=== PATIENT | female | born 1990 | race African-American/Black ===

== ENCOUNTER 2017-11-29 18:17 | Emergency (ER) | payer SELFPAY ==
[2017-11-29 18:55] LABS: #Basophils 0.1 thou/uL (0.0-0.2); #Eosinphils 0.1 thou/uL (0.0-0.7); #Lymphocytes 3.4 thou/uL (1.20-3.40); #Monocytes 0.6 thou/uL (0.11-0.59); #Neutrophils 8.1 thou/uL (1.40-6.50); %Basophils 0.9 % (0.0-1.0); %Eosinophils 1.1 % (0.0-10.0); %Lymphocytes 27.4 % (21.0-51.0); %Monocytes 5.1 % (0.0-10.0); %Neutrophils 65.5 % (42.0-75.0); Hemoglobin 14.1 g/dL (12.0-16.0); Mean Corpuscular HGB CONC 33.7 g/dL (32.0-36.0); Mean Corpuscular Hemoglobin 25.5 pg (27.0-31.0); Mean Corpuscular Volume 75.8 fl (81.0-99.0); Mean Platelet Volume 8.1 fL (7.4-10.4); Platelet Count 356 thou/uL (130-400); RBC Distribution Width 13.5 % (11.5-14.5); Red Blood Cell (RBC) Count 5.51 mill/uL (4.20-5.40); White Blood Cell (WBC) Count 12.3 thou/uL (4.8-10.8)
[2017-11-29 19:16] LABS: ALT (SGPT) 266 U/L (8-55); AST (SGOT) 138 U/L (5-34); Albumin 4.1 g/dL (3.5-5.0); Alkaline Phosphatase 129 U/L (40-150); Anion Gap 14 mmol/L (10-20); BUN (Urea Nitrogen) 7 mg/dL (7.0-18.7); Bilirubin, Total 0.8 mg/dL (0.2-1.2); Calc. Creatinine Clearance 0 mL/min (70-130); Calcium 9.5 mg/dL (7.8-10.44); Carbon Dioxide 27 mmol/L (22-29); Chloride 99 mmol/L (98-107); Estimated GFR-MDRD 90; Globulin 4.3 g/dL (2.4-3.5); Glucose 81 mg/dL (70-105); Potassium 3.5 mmol/L (3.5-5.1); Protein, Total 8.4 g/dL (6.0-8.3); Sodium 136 mmol/L (136-145)
[2017-11-29 20:15] LABS: Bilirubin Negative (Negative); Blood, Urine Negative (Negative); Clarity CLEAR (Clear); Glucose, Urine (Dipstick) Negative (Negative); Leukocyte Small (Negative); Nitrite Negative (Negative); Protein, Urine (Dipstick) Trace mg/dL (Neg-Trace); Specific Gravity, Urine 1.022 (1.002-1.036)
[2017-11-29 20:16] LABS: Pregnancy Test - Urine (BHCG) POSITIVE (Negative); Pregu Control Background? CLEAR/WHITE (CLR/WHITE); Pregu Control Bar Appear? YES (CONTROL BAR); Specific Gravity 1.022 (1.002-1.036)
[2017-11-29 20:17] LABS: Bacteria/HPF Rare-Few HPF (None Seen); Hyaline Casts/LPF 0-3 HYALINE CAST LPF (0-3 Hyaline); Squamous Epithelial 0-3 HPF (0-3)
[2017-11-29] MEDS ORDERED: Doxylamine 25 MG TAB PO SCH (20:30)
[2017-11-29] MEDS ORDERED: pyridOXINE 50 MG (B6) TAB PO SCH (21:45)
--- NOTE | 2017-11-29 22:36 | ULT ---
PELVIC ULTRASOUND 11/29/17 HISTORY: Nausea, vomiting and cramping in a female. Confirm intrauterine . TECHNIQUE: Multiplanar mcclain scale and color doppler images were obtained in a transabdominal pelvic ultrasound. Spectral analysis of the doppler waveforms of the ovaries were performed. FINDINGS: There is a gestational sac within the uterus. This contains a pole and yolk sac. The crown-rump length measures 0.88 cm which estimates gestational age of 6 weeks, 6 days. A heart rate was d etected at 132 beats per minute. No free fluid is seen in the pelvis. Both ovaries are normal in size and appearance and demonstrates normal internal flow. IMPRESSION: Single live intrauterine with estimated age of 6 weeks, 6 days. POS: CLAUDIA
[2017-12-02 03:15] LABS: Chlamydia by PCR Not Detected (NotDetected); GC by PCR Not Detected (NotDetected)
== END 2017-11-29 23:30 | disposition home or self-care (01) ==
LOC: ERS 18:17
DX: O23.591 Infection of other part of genital tract in pregnancy, first trimester (principal); O21.9 Vomiting of pregnancy, unspecified; Z3A.01 Less than 8 weeks gestation of pregnancy
CPT/HCPCS: 36415; 76856; 80053; 81003; 81015; 81025; 84702; 85025; 87480; 87491; 87510; 87591; 87660; 96360; 96361

== ENCOUNTER 2018-05-14 19:01 | Inpatient (IN) | payer OTHER ==
[2018-05-14 19:34] VITALS: BMI 36.4
[2018-05-14] MEDS ORDERED: Ondansetron HCl/PF 4 MG/2 ML Vial IVP PRN (20:33)
[2018-05-14] MEDS ORDERED: Lactated Ringer's 1,000 ML IV SCH (20:45)
[2018-05-14] MEDS ORDERED: Lidocaine 2% Viscous Solution 20 ML, Aluminum & Magnesium Hydroxide 30 ML, Donnatal Eli... SSW SCH (20:45)
[2018-05-14] MEDS ORDERED: MULTIVITAMINS IV SCH (20:45)
[2018-05-14] MEDS ORDERED: Fleet Enema 133 ML BOT PR SCH (20:45)
[2018-05-14] MEDS ORDERED: THIAMINE HCL IV SCH (20:45)
[2018-05-14] MEDS ORDERED: Multivit, Adult Inj 10 ML VIAL IV SCH (20:45)
[2018-05-14] MEDS ORDERED: LACTATED RINGER S IV SCH (20:45)
[2018-05-14] MEDS ORDERED: Magnesium Citrate 300 ML BOT PO SCH (20:45)
[2018-05-14 20:55] LABS: #Basophils 0.1 thou/uL (0.0-0.2); #Eosinphils 0.2 thou/uL (0.0-0.7); #Lymphocytes 2.8 thou/uL (1.20-3.40); #Monocytes 0.7 thou/uL (0.11-0.59); #Neutrophils 10.2 thou/uL (1.40-6.50); %Basophils 0.6 % (0.0-1.0); %Eosinophils 1.2 % (0.0-10.0); %Lymphocytes 20.2 % (21.0-51.0); %Monocytes 4.7 % (0.0-10.0); %Neutrophils 73.2 % (42.0-75.0); Hemoglobin 11.6 g/dL (12.0-16.0); Mean Corpuscular HGB CONC 33.9 g/dL (32.0-36.0); Mean Corpuscular Hemoglobin 24.4 pg (27.0-31.0); Mean Corpuscular Volume 71.8 fL (78.0-98.0); Mean Platelet Volume 9.2 fL (7.4-10.4); Platelet Count 278 thou/uL (130-400); RBC Distribution Width 14.4 % (11.5-14.5); Red Blood Cell (RBC) Count 4.78 mill/uL (4.20-5.40); White Blood Cell (WBC) Count 13.9 thou/uL (4.8-10.8)
[2018-05-14 21:26] LABS: ALT (SGPT) 28 U/L (8-55); AST (SGOT) 32 U/L (5-34); Albumin 3.6 g/dL (3.5-5.0); Alkaline Phosphatase 120 U/L (40-150); Anion Gap 15 mmol/L (10-20); BUN (Urea Nitrogen) 4 mg/dL (7.0-18.7); Bilirubin, Total 0.5 mg/dL (0.2-1.2); Calc. Creatinine Clearance 198 mL/min (70-130); Calcium 8.5 mg/dL (7.8-10.44); Carbon Dioxide 19 mmol/L (22-29); Chloride 105 mmol/L (98-107); Estimated GFR-MDRD Greater than 90; Globulin 3.6 g/dL (2.4-3.5); Glucose 65 mg/dL (70-105); Lipase 22 U/L (8-78); Potassium 4.3 mmol/L (3.5-5.1); Protein, Total 7.2 g/dL (6.0-8.3); Sodium 135 mmol/L (136-145)
[2018-05-14] MEDS: Metoclopramide HCl 10 MG/2 ML VIAL IVP SCH ×2 (23:19→23:20)
[2018-05-15] MEDS: Lactated Ringer's 1,000 ML IV SCH ×3 (00:19→14:18)
[2018-05-15] MEDS: Ondansetron HCl/PF 4 MG/2 ML Vial IVP SCH ×3 (00:23→20:55)
[2018-05-15] MEDS ORDERED: diphenhydrAMINE 50 MG/ML VIAL IVP SCH (02:00)
[2018-05-15] MEDS ORDERED: Ondansetron HCl/PF 4 MG/2 ML Vial ONE (05:54)
--- NOTE | 2018-05-15 09:12 | HP ---
DATE OF ADMISSION: 05/14/2018 PRIMARY OB: Tapan Rader D.O. HISTORY OF PRESENT ILLNESS: The patient is a 27-year-old G3, P2 female with an intrauterine pregnanc y at 30 weeks gestation who presents to Labor and Delivery with a 2 week history of abdominal pain wi th persistent nausea and vomiting since 4 weeks gestation. She reports that she has been on multiple medications at home including Zofran and Diclegis, Bonjesta and metoclopramide in an attempt to cont rol her nausea and vomiting. She reports a 5-6 pound weight loss since the beginning of her pregnanc y. What prompted her to come to the emergency room today is her abdominal pain that she has been exp eriencing. The patient reports that the pain is in the left upper quadrant, seems to feel worse when she is full after eating. The patient also reports that she has had a long history of heartburn, be lching and constipation where reporting her stools as being very small volume and pebble like. The p atient denies any GI problems outside of . She denies fever, insomnia, dysphagia, jaundice, liver or gallbladder disease, head trauma or lightheadedness. PAST MEDICAL HISTORY: Sickle cell trait and blues with 2 prior pregnancies. PAST SURGICAL HISTORY: Eye surgery for correction of strabismus as a child. MEDICATIONS: Metoclopramide for nausea and vomiting, ____, vitamins. ALLERGIES: No known drug allergies. SOCIAL HISTORY: Denies drug, alcohol or tobacco use. 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 OB LABS: Unavailable at time of dictation. REVIEW OF SYSTEMS: The patient denies fever, fall, headache, chest pain. She does have some shortne ss of breath with exertion, reports the nausea and vomiting per HPI. Denies any new rashes. Denies any vaginal bleeding or leakage of fluid, any urinary urgency or frequency. She denies syncope. PHYSICAL EXAMINATION: VITAL SIGNS: Blood pressure 109/65, heart rate of 85, respiratory rate 24, temperature 98.0. GENERAL: The patient is alert, oriented, and cooperative and pleasant to interact with. She appears uncomfortable and spits into the vomit bag during part of the exam. HEART: Regular rate and rhythm, no gallops, rubs or murmurs. LUNGS: Clear to auscultation bilaterally. She has good peripheral pulses. ABDOMEN: Soft. She does have some tenderness to palpation in the left upper quadrant. No tendernes s to palpation in the right upper quadrant, right lower quadrant, left lower quadrant suprapubic. heart tones, baseline is noted to be in the 130s with moderate long-term variability, positive accelerations, no decelerations, and no contractions on the tocometer. LABORATORY DATA: White count is 13.9, hemoglobin 11.6, hematocrit 34.3, platelets of 278,000. Sodiu m is 135, potassium 4.3, chloride 105, bicarbonate 19, BUN 4, creatinine 0.59, glucose 65, calcium 8. 5, AST of 32, ALT of 28, bilirubin of 0.5. Amylase is 60, lipase of 20. H. pylori test has been ord ered, collected and is pending. ASSESSMENT AND PLAN: The patient is a 27-year-old female female with an intrauterine at 30 weeks with longstanding nausea and vomiting with new onset abdominal pain in the last couple w eeks that is worse with food, accompanied by significant constipation. During this hospitalization w e have given her Fleet's enema with some success; however, she has not had much stool. She has had 2 separate bowel movements with stool removed and she has received a bag of IV fluids with thiamine an d multivitamins given the longstanding history of nausea, vomiting, and weight loss and another liter of LR with maintenance fluids. Of note, the patient did have a need to urinate after 1 liter of flu id suggesting a decent hydration status. The patient has been placed on Zofran and Reglan scheduled with Benadryl and in spite of that, the patient has vomited 3 times through the night. We will order a right upper quadrant ultrasound as this was a plan in place with her primary OB. The patient's ph ysician, Dr. Rader, has been notified of the patient's presence and has asked that we continue to man age her. Fetus has a category 1 tracing. We will continue once daily NSTs, we will the right upper quadrant u ltrasound to current regimen and make her n.p.o. for now.
--- NOTE | 2018-05-15 10:05 | ULT ---
COMPLETE ABDOMEN ULTRASOUND: INDICATION: Epigastric abdominal pain as well as right upper quadrant and left upper quadrant abdominal pain. FINDINGS: There are numerous shadowing gallstones within the gallbladder. No gallbladder wall thickening or pe richolecystic fluid is identified. No sonographic Braswell's sign is reported. The common bile duct m easures 3 mm. Appropriate hepatopetal flow is seen within the portal vein. Visualized liver, aorta, IVC, and spleen were within normal limits. The visualized aspects of the pa ncreas are within normal limits. The right kidney measures 11.2 cm in length and the left measured 10.8 cm in length. Incidental note is made of a live intrauterine gestation with heart rate documented at 152 b.p. m. IMPRESSION: 1. Cholelithiasis without evidence of acute cholecystitis. 2. Live intrauterine gestation. POS: PEGGY
--- NOTE | 2018-05-15 11:29 | PDOC.EVN ---
Event Note - Event Note Event Note: HD 1 S: main concern is pain, nausea is same as nausea but pain is new, progressing all week O: VSS Uncomfortable appearing but A and O nonlabored breathing Abd +tenderness mid epigastric gravid uterus FHT reactive A/P: Discussed pain may be GI related (nichole, gastritis, constipation) vs discomfort, leaning to GI cause. Abd US orderd, labs WNL this AM. Being managed by [facility] service.
--- NOTE | 2018-05-15 13:09 | PDOC.EVN ---
Event Note - Event Note Event Note: Preop: I assumed care of L&D at 1200 noon: @1250: I discussed with Dr Arrieta in L&D open cystectomy . They will plan open GB removal due to EGA and diffficuluty with laparoscopy. We will monitor her in L&D for 24 hours postop. Surgical care by Surgery team.
--- NOTE | 2018-05-15 13:15 | CON ---
DATE OF CONSULTATION: 05/15/2018 REQUESTING PHYSICIAN: Dr. Inga Sahu. HISTORY OF PRESENT ILLNESS: This is a 27-year-old G3, P2 woman who is 30 weeks of gestation. The pa nathan was admitted for observation with complaint of persistent epigastric to right upper quadrant ab dominal pain of 3 weeks' duration. This is associated with multiple episodes of emesis exacerbated b y eating. The patient states that she has had persistent emesis throughout her , which is u nusual and had two previous pregnancies. She only had emesis gravidarum up to 10 weeks and nothing b eyond. The patient denies any fevers or chills. She has lost a fair amount of weight due to exacerb ating symptoms by eating. PAST MEDICAL HISTORY: Pertinent for sickle cell trait. She had normal vaginal deliveries and had tw o previous pregnancies. PAST SURGICAL HISTORY: Surgery for strabismus as a child. PREHOSPITAL MEDICATIONS: Includes vitamins. ALLERGIES: Patient has no known drug allergies. SOCIAL HISTORY: She denies any cigarette smoking, ethanol, or illicit drug abuse. REVIEW OF SYSTEMS: A 10-point review of systems essentially unremarkable except for as stated in pas t medical history and chief complaint. PHYSICAL EXAMINATION: GENERAL: This reveals a 27-year-old normally developed woman, who is otherwise coherent and interact sarwat in appears stated age. The patient is alert and oriented x3. She appears to be in no acute dist ress at the time of my evaluation. VITAL SIGNS: Currently includes blood pressure 121/62, pulse is 75, respiratory rate is 20, temperat ure is 98.3 degrees Fahrenheit. HEENT: Reveals normocephalic and atraumatic. Pupils are equal, round, reactive to light and accommo dation. Extraocular muscles are intact bilaterally. She has no sclerae icterus present. Oral mucos a is pink and moist. No lesions are noted. NECK: Supple. No palpable lymphadenopathy or thyromegaly present. CARDIOVASCULAR: Reveals regular rate and rhythm, no murmurs or gallops auscultated. LUNGS: Clear to auscultation bilaterally. Her breathing regular and unlabored. ABDOMEN: Soft and gravid with 30 weeks intrauterine . PELVIS: The uterus is palpated almost to the epigastrium. Liver and spleen are otherwise nonpalpabl e below costal margin. She has moderate tenderness to palpation of the right upper quadrant. EXTREMITIES: Reveals 2+ radial and pedal pulses bilaterally. No ankle edema is present. NEUROLOGIC: Reveals no focal deficits present. PERTINENT LABORATORY FINDINGS: Includes CBC from yesterday with 13,900 white blood cells, hemoglobin and hematocrit 11.6 and 34.3 respectively. Platelet count is 278,000. Metabolic profile: Sodium 1 35, potassium is 4.3, chloride is 105, bicarbonate is 19, BUN is 4, creatinine 0.59, glucose is 65, t otal bilirubin 0.5. AST and ALT are 32 and 28 respectively. Alkaline phosphatase is normal at 120. Serum lipase is also normal at 22. I have personally reviewed the abdominal ultrasound, which was obtained today and this reveals multip le intraluminal gallstones. There is no gallbladder wall thickening or pericholecystic fluid present . Common bile duct is normal in diameter at 2.9 mm. IMPRESSION: 1. Cholelithiasis with biliary colic and probable chronic cholecystitis. 2. A 30-week gestation of intrauterine . RECOMMENDATION: I have discussed with the patient extensively about conservative management and imme diate laparoscopic cholecystectomy. However, the patient insists that she has been unable to maintain food and has lost weight over the last 3-4 weeks and is unwilling to wait. The alternat sarwat is to proceed with open cholecystectomy. At this time with inherent risks of premature contracti on. I have also advised the patient of additional risk for bleeding, infection, injury to bile duct or surrounding structures. This information was given to the patient in the presence of her nurse at bedside. The patient indicates understanding of information given. She has elected to proceed with open cholecystectomy at this time. Thank you again, Dr. Sahu for allowing me the opportunity to participate in the care of this patie nt.
--- NOTE | 2018-05-15 13:42 | PRG ---
PREOPERATIVE INFORMED CONSENT DICTATION PREOP DATE OF SERVICE: 05/15/2018 TIME OF DICTATION: 1324 TIME OF INTERVENTION: 1310 to 1324. In brief, this is a patient that I have inherited since I took on Labor and Delivery call at 12:00 noon today. This patient is a patient of Dr. Tapan Rader who has been diagnosed with cholelithiasis at 30 weeks who is scheduled for open cholecystectomy by Dr. Amrik Arrieta. Dr. Arrieta has already seen the patient and has scheduled time in the OR for this procedure. I was called to antepartum room 1 to answer questions based on the surgical risks and benefits of this procedure at 30 weeks. I performed a detailed informed consent with the patient including the risks including labor, bleeding and infection. Benefits include decrease in future pain and decrease in the need for future potential emergency surgical intervention. I also discussed the option of laparoscopy, but based on the patient's EGA of 30 weeks laparoscopy is contraindicated due to the uterus gravid state. We also discussed the potential risk of , which is low with this kind of surgery, but this is why we will monitor the patient for 24 hours postop in Labor and Delivery. We discussed ERCP as an option, but it is not a valid choice at this time based on the patient's multiple stones and gestational age. Details were given and she voiced understanding. No acute concerns were noted. She will sign the informed consent by Dr. Arrieta and we will monitor her in Labor and Delivery postop for any evidence of labor. It is important to note that the patient had a family member in the room and also had the patient's family member on the phone who participated in our informed consent discussion. SONIDO
[2018-05-15] MEDS ORDERED: PHENYLEPHRINE-NS 100 MCG/ML 10 ML SYRINGE ONE (15:00)
[2018-05-15] MEDS ORDERED: Lidocaine 1% PF 5 ML VIAL ONE (15:00)
[2018-05-15] MEDS ORDERED: Succinylcholine Chloride 20 MG/ML 10 ml SYRINGE FS ONE (15:00)
[2018-05-15] MEDS ORDERED: PROPOFOL 200 MG/20 ML VIAL ONE (15:00)
[2018-05-15] MEDS ORDERED: ePHEDrine/0.9% NaCl/PF SYRINGE 50 mg/10 ml ONE (15:00)
[2018-05-15] MEDS ORDERED: Glycopyrrolate 0.2 MG/ML 5 ML SYRINGE ONE (15:00)
[2018-05-15] MEDS ORDERED: Esmolol 100 MG/10 ML VIAL ONE (15:00)
[2018-05-15] MEDS ORDERED: Dexamethasone 20 MG/5 ML VIAL ONE (15:00)
[2018-05-15] MEDS ORDERED: Iothalamate Meglumine 60% 50 ML VIAL FS ONE (15:55)
[2018-05-15] MEDS ORDERED: Fentanyl 100 MCG/2 ML VIAL ONE ×2 (16:11)
[2018-05-15] MEDS ORDERED: Meperidine HCl/PF 25 MG/ML VIAL SLOW IVP PRN (16:52)
[2018-05-15] MEDS ORDERED: Ondansetron HCl/PF 4 MG/2 ML Vial IVP PRN (16:52)
[2018-05-15] MEDS ORDERED: Promethazine HCl 25 MG/ML VIAL IM PRN (16:52)
[2018-05-15] MEDS ORDERED: Promethazine HCl 25 MG/ML VIAL SLOW IVP PRN (16:52)
[2018-05-15] MEDS ORDERED: Bupivacaine/Epinephrine 0.25% 30 ML VIAL ONE (17:56)
[2018-05-15] MEDS ORDERED: traMADol HCl 50 MG TAB PO PRN ×2 (18:35)
--- NOTE | 2018-05-15 18:35 | PDOC.EVN ---
Event Note - Event Note Event Note: L&D Note: Patient now out of Main OR.... No complications noted. Awaiting arrival to L&D after initial postop recovery.
[2018-05-15] MEDS: Butorphanol Tartrate 1 MG/ML VIAL SLOW IVP PRN ×2 (19:26→22:39)
--- NOTE | 2018-05-15 19:26 | PDOC.EVN ---
Event Note - Event Note Event Note: Back in L&D for monitoring
[2018-05-15] MEDS: diphenhydrAMINE 50 MG/ML VIAL IVP SCH (20:50)
[2018-05-15] MEDS: Metoclopramide HCl 10 MG/2 ML VIAL IVP SCH (20:55)
[2018-05-15] MEDS: Acetaminophen 500 MG TAB PO SCH (22:07)
--- NOTE | 2018-05-15 22:52 | OP ---
DATE OF PROCEDURE: 05/15/2018 PREOPERATIVE DIAGNOSES: 1. Acute cholecystitis with cholelithiasis. 2. A 30 weeks intrauterine . POSTOPERATIVE DIAGNOSES: 1. Acute cholecystitis with cholelithiasis. 2. A 30 weeks intrauterine . OPERATIONS PERFORMED: Open cholecystectomy. SURGEON: Amrik Arrieta D.O. ANESTHESIA: General endotracheal. ESTIMATED BLOOD LOSS: 20 mL. FLUIDS GIVEN: 1200 mL crystalloids. URINARY OUTPUT: 250 mL. SPONGE AND INSTRUMENT COUNT: Certified as correct x2. COMPLICATIONS: None apparent at the time of operation. INDICATIONS FOR PROCEDURE: A 27-year-old woman G3, P2 with 30 weeks intrauterine , presente d with recurrent epigastric to right upper quadrant abdominal pain which has become more persistent o andrew the last 3 weeks. The patient is anorexic for fear of exacerbating her pain. She has lost a olya r amount of weight. After discussion and provision of options including laparoscopic chol ecystectomy, the patient vehemently refused to wait any longer and elected, however, to proceed with open cholecystectomy with all inherent risks advised. DESCRIPTION OF PROCEDURE: Informed consent obtained from the patient who was brought to the operatin g room and placed in a supine position. Once general anesthesia was initiated, patient is placed in the left lateral recumbent position. The abdomen was then sterilely prepped and draped in usual fash ion after Gutierrez catheter was inserted and placed bedside drain. Right subcostal incision is made usi ng #10 scalpel. Incision was carried through subcutaneous tissues maintaining hemostasis using therm ocautery. Fascia was then incised along the line of the incision. The muscle was sterilely divided with good hemostasis exposing the peritoneum beneath which was grasped x2 with hemostats. The perito pamela cavity was then sharply entered using Metzenbaum scissors. Bookwalter retractor was put in plac e to gain exposure. The fundus of the gallbladder was identified, grasped with a ring forceps and el evated. Omental adhesions were then taken down from remainder of the gallbladder. A second ring for ceps was then applied at the Maxi's pouch which was retracted laterally. The gallbladder was westley en down off the liver in a retrograde fashion using cautery. Once the gallbladder was freed from the liver mcc, the cystic duct was then carefully dissected free from surrounding structures and div ided between clips. Two clips were applied proximally and one clip at the junction of the cystic jodi t and gallbladder. The cystic artery was also divided between clips in a similar fashion. The remai nder of the gallbladder was then taken off the liver bed with good hemostasis. Minor oozing from the liver bed was readily controlled using a 1 x 2 inch piece of . Operative site was inspected fo r good hemostasis. All clips remain in place, no bile stains present. Finding no other pathology, o peration was terminated. Peritoneum was approximated along the line of the incision using a running stitch of 2-0 Vicryl. Fascia was then approximated in layers using interrupted sutures of 0 Vicryl. Subcutaneous tissues were approximated using interrupted sutures of 2-0 Vicryl. Skin incision was c losed using a running stitch of 4-0 Monocryl suture in subcuticular fashion. Dermabond was then appl ied over the incision. The patient tolerated the operation without any apparent complications and wa s returned to the recovery room in satisfactory condition.
[2018-05-16] MEDS: Butorphanol Tartrate 1 MG/ML VIAL SLOW IVP PRN ×3 (01:13→07:32)
[2018-05-16] MEDS: Lactated Ringer's 1,000 ML IV SCH ×4 (01:14→19:00)
[2018-05-16] MEDS ORDERED: Promethazine HCl 25 MG in Sodium Chloride 0.9% 50 ML IVPB PRN (01:22)
[2018-05-16] MEDS: Promethazine HCl 25 MG/ML VIAL IM/IV PRN ×2 (01:40→07:34)
[2018-05-16] MEDS: Acetaminophen 500 MG TAB PO SCH ×2 (04:17→11:49)
[2018-05-16] MEDS: diphenhydrAMINE 50 MG/ML VIAL IVP SCH ×2 (04:29→11:15)
--- NOTE | 2018-05-16 05:59 | PDOC.EVN ---
Event Note - Event Note Event Note: Postop Day 0 to 1 s/p open nichole EGA 30 weeks 6 days S. Resting, states doing ok...still with some pain at site O. Adebrile, BPs ok. Incision at RUQ sutured and DB closed Uterus NT Soft abd Monitors: Cat 1/reactive...slight irritability on monitor (toco) A/P: s/p open nichole for cholelithiasis...doing well. Plan: although some irritability, there are not felt...ok to remove monitors at 0700....watch today, maybe home tomorrow. Advance diet as shameka
[2018-05-16 06:17] LABS: ALT (SGPT) 42 U/L (8-55); AST (SGOT) 44 U/L (5-34); Albumin 3.2 g/dL (3.5-5.0); Alkaline Phosphatase 107 U/L (40-150); Bilirubin, Direct 1.1 mg/dL (0.1-0.3); Bilirubin, Total 1.8 mg/dL (0.2-1.2); Protein, Total 6.4 g/dL (6.0-8.3)
[2018-05-16] MEDS ORDERED: Morphine 4 MG/ML VIAL SLOW IVP PRN (11:24)
[2018-05-16] MEDS ORDERED: Ondansetron HCl/PF 4 MG/2 ML Vial IVP PRN (11:25)
[2018-05-16] MEDS ORDERED: Sodium Chloride 0.9% 10 ML ONE (11:37)
[2018-05-16] MEDS: traMADol HCl 50 MG TAB PO PRN (12:19)
[2018-05-16] MEDS: Acetaminophen 1,000 MG in Premix Bag 1 BAG IVPB SCH ×2 (15:35→22:35)
[2018-05-16] MEDS: Ondansetron HCl/PF 4 MG/2 ML Vial IVP PRN (15:36)
[2018-05-16] MEDS: Simethicone Chewable 80 MG TAB PO PRN (17:17)
[2018-05-16] MEDS: Famotidine 20 MG TAB PO SCH (22:35)
[2018-05-17] MEDS: Lactated Ringer's 1,000 ML IV SCH ×3 (03:30→21:54)
[2018-05-17] MEDS: Acetaminophen 1,000 MG in Premix Bag 1 BAG IVPB SCH ×2 (03:30→09:41)
[2018-05-17 06:14] LABS: ALT (SGPT) 95 U/L (8-55); AST (SGOT) 77 U/L (5-34); Albumin 3.1 g/dL (3.5-5.0); Alkaline Phosphatase 112 U/L (40-150); Bilirubin, Direct 1.2 mg/dL (0.1-0.3); Protein, Total 6.3 g/dL (6.0-8.3)
--- NOTE | 2018-05-17 06:31 | PRG ---
DATE OF SERVICE: 05/17/2018 SUBJECTIVE: The patient is postop day #1 from open cholecystectomy. The patient noted to be 30 week s and is currently in the antepartum byrnes. She had no issues overnight. She did have a lit tle bit of pain which is expected after her procedure and her . The patient is tolerating a diet. PHYSICAL EXAMINATION: VITAL SIGNS: Temperature is 98.5, heart rate 95, blood pressure 119/86, respirations 18, oxygen satu ration 96% on room air. GENERAL: The patient is resting comfortably in bed. She is awake, alert, and oriented x3. LUNGS: Clear to auscultation bilaterally. ABDOMEN: Obviously gravid. Her surgical site is clean, dry, and intact. The dressing is clean, dry , and intact. Her abdomen is tender without signs of peritoneal signs. EXTREMITIES: Neurovascularly intact x4. LABORATORY DATA: This morning, total bilirubin 1.8, which is up from 0.5; direct bilirubin 1.1; AST 44; ALT 42; alkaline phosphatase 107. ASSESSMENT AND PLAN: 1. Status post open cholecystectomy. 2. A 30-week gestation intrauterine . Plan will be to repeat her LFTs in the morning. Continue supportive care per the primary team, discu ssed with the patient to avoid the strong narcotics and use the tramadol sparingly. The evaluation w as done with Dr. Arrieta this morning during rounds.
--- NOTE | 2018-05-17 08:18 | PDOC.EVN ---
Event Note - Event Note Event Note: real estate underwriter sign on note: Noted to be back on clears. Otherwise stable. Awaiting possible dsch tomorrow if stable if tolerating clears. Dr Arrieta saw patient last pm
--- NOTE | 2018-05-17 08:41 | PRG ---
DATE OF SERVICE: 05/17/2018 SUBJECTIVE: The patient is a 27-year-old female with an intrauterine at approximately 30 w eeks' gestation, who is now postop day 2, status post an open cholecystectomy for persistent nausea, vomiting, and abdominal pain. The patient, yesterday, had some difficulty with pain control, nausea, vomiting, and was switched over to IV Tylenol, which is the only thing she has required since then. The patient today reports she has much better pain control. Her nausea is much improved. She was p laced back on liquid diet yesterday evening by her primary surgeon, Dr. Arrieta. She is ambulating wit hout difficulty and fetus has been having reactive NSTs. OBJECTIVE: VITAL SIGNS: This morning, blood pressure is 119/72, temperature 97.7, pulse of 86, respiratory rate of 18. GENERAL: She appears to be in no acute distress. She is alert and oriented, cooperative and pleasan t to interact with. HEENT: Head is normocephalic, atraumatic. ABDOMEN: Gravid and soft. Her incision is clean, dry, and intact. ASSESSMENT AND PLAN: The patient is a 27-year-old female with an intrauterine approximatel y 30 weeks' gestation, who is now postoperative day #2, status post open cholecystectomy. The patien t is doing much better today than yesterday from a pain standpoint and nausea and vomiting standpoint . Possible discharge today pending the primary surgeon's decision.
[2018-05-17] MEDS: Famotidine 20 MG TAB PO SCH ×2 (09:40→21:54)
[2018-05-17] MEDS: Simethicone Chewable 80 MG TAB PO PRN ×2 (09:47→19:58)
[2018-05-17] MEDS ORDERED: Bisacodyl 10 MG SUPP PR PRN (09:58)
[2018-05-17] MEDS: Acetaminophen 500 MG TAB PO SCH ×2 (15:53→21:54)
[2018-05-17] MEDS: Ondansetron HCl/PF 4 MG/2 ML Vial IVP PRN ×2 (15:53→22:01)
[2018-05-17] MEDS: traMADol HCl 50 MG TAB PO PRN (19:58)
--- NOTE | 2018-05-17 20:25 | PDOC.EVN ---
Event Note - Event Note Event Note: RN phone call: Diet follow up: still on clears, will advance to regular diet.
[2018-05-18] MEDS: Ondansetron HCl/PF 4 MG/2 ML Vial IVP PRN (03:47)
[2018-05-18 05:41] LABS: #Basophils 0.1 thou/uL (0.0-0.2); #Eosinphils 0.1 thou/uL (0.0-0.7); #Lymphocytes 2.3 thou/uL (1.20-3.40); #Monocytes 0.6 thou/uL (0.11-0.59); #Neutrophils 8.9 thou/uL (1.40-6.50); %Basophils 1.1 % (0.0-1.0); %Eosinophils 0.8 % (0.0-10.0); %Lymphocytes 19.1 % (21.0-51.0); %Monocytes 5.2 % (0.0-10.0); %Neutrophils 73.9 % (42.0-75.0); Hemoglobin 10.8 g/dL (12.0-16.0); Mean Corpuscular HGB CONC 33.6 g/dL (32.0-36.0); Mean Corpuscular Hemoglobin 24.5 pg (27.0-31.0); Mean Corpuscular Volume 72.9 fL (78.0-98.0); Mean Platelet Volume 9.1 fL (7.4-10.4); Platelet Count 233 thou/uL (130-400); RBC Distribution Width 14.7 % (11.5-14.5); Red Blood Cell (RBC) Count 4.39 mill/uL (4.20-5.40); White Blood Cell (WBC) Count 12.1 thou/uL (4.8-10.8)
[2018-05-18 06:01] LABS: ALT (SGPT) 231 U/L (8-55); AST (SGOT) 162 U/L (5-34); Albumin 3.2 g/dL (3.5-5.0); Alkaline Phosphatase 123 U/L (40-150); Bilirubin, Direct 1.3 mg/dL (0.1-0.3); Bilirubin, Total 1.9 mg/dL (0.2-1.2); Protein, Total 6.5 g/dL (6.0-8.3)
--- NOTE | 2018-05-18 06:21 | PDOC.EVN ---
Event Note - Event Note Event Note: POD 3 s/p open nichole. EGA 32 weeks 1 day S. Has had a BM now, but still with continued nausea...had emesis this am. States some back pain. No CTX O. Afebrile...nontachycardic AM labs: CBC with WBC 12, HCT 32, PLT 233 CMP with AST now 162, ALT 231, TBili 1.p Physical: NAD but looks uncomfortable A/P: POD 3 s/p open nichole with some new LFT elevation. Will check patient out to Dr Rader. Await Dr Arrieta input. No evidence PTL.
[2018-05-18] MEDS: Lactated Ringer's 1,000 ML IV SCH ×2 (07:11→17:54)
[2018-05-18] MEDS: Acetaminophen 500 MG TAB PO SCH ×4 (07:11→21:44)
--- NOTE | 2018-05-18 07:46 | PDOC.EVN ---
Event Note - Event Note Event Note: POD3 S: nausea, discomfort at incision, loose stools, +FM, no PTL signs O: Vital Signs (12 hours) Temp Pulse Resp BP BP Pulse Ox 05/18/18 00:10 98.0 F 72 18 102/58 L 05/17/18 20:00 98.4 F 82 18 127/62 97 Weight Weight 193 lb A and O uncomfortable, sitting on toilet nonlabored breathing gravid uterus, incision CDI no Jose J's Laboratory Results - last 24 hr 05/18/18 05/18/18 05:12 05:12 WBC 12.1 H RBC 4.39 Hgb 10.8 L Hct 32.0 L MCV 72.9 L MCH 24.5 L MCHC 33.6 RDW 14.7 H Plt Count 233 MPV 9.1 Neutrophils % 73.9 Lymphocytes % 19.1 L Monocytes % 5.2 Eosinophils % 0.8 Basophils % 1.1 H Neutrophils # 8.9 H Lymphocytes # 2.3 Monocytes # 0.6 H Eosinophils # 0.1 Basophils # 0.1 Total Bilirubin 1.9 H Direct Bilirubin 1.3 H AST 162 H ALT 231 H Alkaline Phosphatase 123 Serum Total Protein 6.5 Albumin 3.2 L A?P: POD3, elevated LFTs post open nichole, persistent nausea-which is unchanged from her continued nausea during . Will advance diet this AM as tolerated, and FU with surgery recs regarding LFTs.
[2018-05-18] MEDS: Simethicone Chewable 80 MG TAB PO PRN (08:52)
[2018-05-18] MEDS: Famotidine 20 MG TAB PO SCH ×2 (08:52→21:44)
[2018-05-18] MEDS: Ondansetron ODT 4 MG TAB PO SCH ×2 (14:41→17:45)
[2018-05-18] MEDS: Metoclopramide HCl 10 MG/2 ML VIAL IVP PRN (15:58)
[2018-05-18] MEDS: Scopolamine 1.5 mg/72 hour Patch TD SCH (17:45)
[2018-05-19] MEDS: Ondansetron ODT 4 MG TAB PO SCH ×2 (00:31→06:57)
[2018-05-19] MEDS: Metoclopramide HCl 10 MG/2 ML VIAL IVP PRN (00:31)
[2018-05-19] MEDS: Lactated Ringer's 1,000 ML IV SCH ×4 (00:32→21:48)
--- NOTE | 2018-05-19 04:15 | PRG ---
DATE OF SERVICE: 05/19/2018 SUBJECTIVE: The patient is status post open cholecystectomy. Of note, she is 30 weeks gestation, re quiring her open cholecystectomy. She tolerated the procedure well, though she has been having risin g LFTs postoperatively. The patient has not had a bowel movement yet and this may be contributing to those laboratory findings. The patient is tolerating a diet and her pain is controlled. It was dis cussed with her again at length that she must ambulate to help her bowel function returned. PHYSICAL EXAMINATION: VITAL SIGNS: Temperature is 97.9, heart rate 64, blood pressure 109/56, respirations 20, oxygen satu ration 99% on room air. GENERAL: The patient is resting comfortably in bed. She is awake, alert, and oriented. LUNGS: Clear to auscultation bilaterally. HEART: Regular rate and rhythm. EXTREMITIES: Neurovascularly intact. ABDOMEN: Obviously gravid. The surgical sites are clean, dry, and intact and patient has minimal te nderness. LABORATORY DATA: White blood cell count 12.1, hemoglobin 10.8, hematocrit 32.0, platelets 233, total bilirubin 1.9, direct bilirubin 1.3, AST 162, ALT 231, alkaline phosphatase 123. There are no radio graphs to review this morning. ASSESSMENT AND PLAN: 1. Status post open cholecystectomy. 2. 30-weeks gestation intrauterine . PLAN: Continue supportive care. LFTs reported in the morning and again discussed with her the importance of ambulating in order to help her bowel function return. The evaluation and examination were done with Dr. Arrieta this morning during rounds.
[2018-05-19 06:10] LABS: ALT (SGPT) 371 U/L (8-55); AST (SGOT) 253 U/L (5-34); Alkaline Phosphatase 139 U/L (40-150); Bilirubin, Total 1.7 mg/dL (0.2-1.2); Protein, Total 6.3 g/dL (6.0-8.3)
[2018-05-19] MEDS: Acetaminophen 500 MG TAB PO SCH ×4 (06:57→21:47)
[2018-05-19] MEDS ORDERED: Ondansetron ODT 4 MG TAB PO PRN (07:49)
--- NOTE | 2018-05-19 07:54 | PDOC.EVN ---
Event Note - Event Note Event Note: POD4 S: min pain from incision site, last BM Friday was loose, not yesterday, persistent nausea but better than yesterday, +FM O: VSWNL Gen: A and O, undressed on the bed, NAD Lungs nonlabored breathing Abd: inc CDI, gravid, approp tenderness Ext: NROM Labs increased LFTs Laboratory Results - last 24 hr 05/19/18 05:09 Total Bilirubin 1.7 H Direct Bilirubin 1.0 H AST 253 H ALT 371 H Alkaline Phosphatase 139 Serum Total Protein 6.3 Albumin 3.0 L A?P: POD4, 31+ weeks, sp nichole, nausea at baseline for but increased constipation and LFTs. Changed sched zofran to PRN and reglan to scheduled from PRN in effort to decrease constipation as SE. Appreciate gen surg recs regarding LFTs.
[2018-05-19] MEDS ORDERED: Metoclopramide HCl 10 MG/2 ML VIAL IVP SCH (08:00)
[2018-05-19] MEDS: Famotidine 20 MG TAB PO SCH ×2 (10:30→21:47)
[2018-05-19] MEDS: Metoclopramide HCl 10 MG/2 ML VIAL IVP SCH (17:39)
--- NOTE | 2018-05-19 19:28 | PRG ---
DATE OF SERVICE: 05/19/2018 SUBJECTIVE: Ms. Noland is a 27-year-old woman who is 30 weeks gestation intrauterin e . The patient is postoperative day #4 status post open cholecystectomy. She reports any improvement with regard to her nausea since scopolamine patch was placed yesterday. Her appetite is better. She reports adequate pain control. She denies any bowel movement in the last 24 hours never theless. OBJECTIVE: VITAL SIGNS: Today includes, blood pressure is 120/62, pulse 67, respiratory rate is 20, temperature 98.4 degrees Fahrenheit. HEENT: Reveals pupils equal, round, and reactive to light and accommodation. HEART: Reveals regular rate and rhythm, no murmurs or gallops auscultated. CHEST: Clear to auscultation bilaterally. Breathing regular and unlabored. ABDOMEN: Soft and gravid with intrauterine 30 weeks gestation. SKIN: Incision is intact, clean, and dry. She has no peritoneal signs on examination. NEUROLOGIC: Reveals no focal deficits present. LABORATORY DATA: However includes LFTs today. Total bilirubin is stable at 1.7, AST and ALT are bot h elevated at 253 and 271 and rising. IMPRESSION: 1. Postop day #4, status post open cholecystectomy. 2. Abnormal LFTs of undetermined etiology. PLAN: We will consult Gastroenterology and consideration for possible ERCP. There is no clinical ev idence of any active intraabdominal process at this time. General Surgery will continue to follow.
[2018-05-20] MEDS: Simethicone Chewable 80 MG TAB PO PRN (00:36)
[2018-05-20] MEDS: Metoclopramide HCl 10 MG/2 ML VIAL IVP SCH ×3 (02:05→17:45)
--- NOTE | 2018-05-20 02:23 | CON ---
DATE OF CONSULTATION: 05/19/2018 GASTROENTEROLOGY CONSULTATION CHIEF COMPLAINT: Nausea and abdominal pain, elevated liver tests. HISTORY OF PRESENT ILLNESS: Ms. Huang is a 27-year-old woman who presented to the emergency room on 05/14/2018 with abdominal pain in the right upper abdomen and nausea and vomiting. She underwent ul trasound of the gallbladder on the morning of 05/15/2018 and was found to have cholelithiasis. Her l iver tests were normal on the evening of 05/14/2018. She underwent open cholecystectomy by Dr. Arrieta . She has done well postoperatively; however, she has had some persistent nausea and her LFTs were n oted to have increased since then. GI was consulted to evaluate for possible choledocholithiasis. S he has had no fever with this. She has some dull-aching incisional pain in the right upper quadrant, which is constant and mild overall. PAST MEDICAL HISTORY: Sickle cell trait and two prior pregnancies. She is currently 30 weeks' pregn ant. PAST SURGICAL HISTORY: Eye surgery. FAMILY HISTORY: Negative for GI malignancies. SOCIAL HISTORY: No alcohol, tobacco, or drugs. ALLERGIES: No known drug allergies. CURRENT MEDICATIONS: Metoclopramide for nausea and vomiting and vitamins prior to admission . She has received a scopolamine patch and lactulose here in the hospital. She has also been on juan taminophen and famotidine schedule. REVIEW OF SYSTEMS: Negative x10 systems reviewed except as stated in the history of present illness. PHYSICAL EXAMINATION: VITAL SIGNS: Temperature 98.3, pulse 58, blood pressure 122/70. GENERAL: She is in no acute distress. Alert and oriented x3. HEENT: Eyes have no scleral icterus. Oropharynx is clear without lesions. NECK: No cervical or supraclavicular lymphadenopathy. LUNGS: Clear to auscultation bilaterally. HEART: Regular rate and rhythm without murmur. ABDOMEN: She has a gravid uterus. She has an incision over the right upper quadrant, which is heali ng well. She has mild tenderness around that. EXTREMITIES: No lower extremity edema. NEUROLOGIC: Cranial nerves are grossly intact. LABORATORY DATA: White blood cell count 12.1, hemoglobin 10.8, MCV 72.9, platelets 233. Creatinine 0.59, bilirubin was 0.5 on admission 1.7 today. AST was 32 on admission up to 253 today. ALT 28 on admission up to 371 today. Her alkaline phosphatase is normal at 139. Albumin 3.0, lipase 22 on adm ission. IMAGING: She had an ultrasound of the abdomen performed on 05/15/2018 that showed cholelithiasis. H er common bile duct measured at 3 mm. IMPRESSION: 1. Cholecystitis, status post open cholecystectomy on 05/15/2018. 2. Abnormal liver function test. She has an elevated bilirubin and transaminases, which may be more of a hepatocellular injury pattern and given the normal alkaline phosphatase. However, I would stil l suspect the most likely cause of the elevated liver tests is choledocholithiasis. Given that she o nly had a 3-mm common bile duct that would be appropriate to perform MRCP in the morning to evaluate for evidence of choledocholithiasis prior to proceeding with ERCP. It is possible that her elevated liver tests could be a post-anesthesia and hepatocellular injury versus other cause. 3. at 30 weeks' gestation. RECOMMENDATIONS: 1. MRCP in the morning. 2. Proceed with ERCP if the MRCP shows evidence of choledocholithiasis.
[2018-05-20] MEDS: Lactated Ringer's 1,000 ML IV SCH ×2 (06:32→11:56)
[2018-05-20] MEDS: Acetaminophen 500 MG TAB PO SCH (06:32)
[2018-05-20 09:00] LABS: ALT (SGPT) 639 U/L (8-55); AST (SGOT) 400 U/L (5-34); Albumin 3.1 g/dL (3.5-5.0); Alkaline Phosphatase 159 U/L (40-150); Bilirubin, Direct 0.8 mg/dL (0.1-0.3); Bilirubin, Total 1.4 mg/dL (0.2-1.2); Protein, Total 6.6 g/dL (6.0-8.3)
--- NOTE | 2018-05-20 10:17 | MRI ---
MRI ABDOMEN WITHOUT CONTRAST: Date: 05/20/18 HISTORY: Recent cholecystectomy. COMPARISON: Ultrasound dated 05/15/18. TECHNIQUE: Multiplanar, multisequence MRI abdomen performed without contrast. FINDINGS: Recent cholecystectomy changes. There is a right anterior abdominal wall incision. Trace fluid in the gallbladder fossa. No intrahepatic or extrahepatic biliary dilatation. The pancreatic duct is normal. There is moderate right-sided hydroureteronephrosis. Patient is with anterior placenta. IMPRESSION: 1. Status post recent cholecystectomy with small volume gas and fluid in the gallbladder fossa. 2. No evidence of choledocholithiasis. No intrahepatic or extrahepatic biliary dilatation. 3. Moderate right-sided hydroureteronephrosis. POS: [facility]
[2018-05-20] MEDS ORDERED: Mag-Al Plus 1200 MG/1200 MG/120 MG/30 ML UDCUP PO PRN (10:18)
--- NOTE | 2018-05-20 11:57 | PDOC.EVN ---
Event Note - Event Note Event Note: POD 5 S; nausea unchanged, seen in the hallway on way to MRI, +FM O: Vital Signs (12 hours) Temp Pulse Resp BP BP 05/20/18 11:35 97.6 F 54 L 20 125/68 05/20/18 08:06 98.2 F 70 20 96/55 L 05/20/18 07:45 97.6 F 54 L 20 05/20/18 00:38 98.1 F 73 18 110/68 Weight Weight 193 lb NAD, sitting up in wheelchair nonlabored breathing gravid uterus, incision not seen Ext: trace LE edema Laboratory Results - last 24 hr 05/15/18 05/20/18 01:33 08:14 Total Bilirubin 1.4 H Direct Bilirubin 0.8 H AST 400 H ALT 639 H Alkaline Phosphatase 159 H Serum Total Protein 6.6 Albumin 3.1 L Stool H. pylori Ag Positive A A/P: POD 4 cholecystectomy w increasing LFTs daily, MRI and poss ERCP scheduled today with GI. H. pylori positive abx and PPI ordered. NST ordered daily. Appreciated GI and surgery recs.
[2018-05-20] MEDS ORDERED: Clarithromycin 500 MG TAB PO SCH (12:30)
[2018-05-20 12:55] LABS: Iron 54 ug/dL (50-170); Iron Binding Capacity, Total 396 mcg/dL (265-497)
--- NOTE | 2018-05-20 13:24 | PDOC.EVN ---
Event Note - Event Note Event Note: Dr Pena called me to report that after eval of MRI he does not beleive an ERCP is indicated. However he has ordered some lab work that he will follow up on. In reviewing her labs I noticed H Pylori testing is back and is postive for the antigen. I have relayed findings to her primary OB Dr Rader. I will start ppi ( pepsid not helping the heartburn), clarithromycin 500mg bid and amoxicillin 1000mg bid. Initially she reported and allergy to pcn. After talking to her about it reports she has taken amoxicillin with out difficulty. Her reported allergy was based on an experience at 2yrs of age and has always been told she was allergic.
[2018-05-20 13:30] LABS: Ferritin 77.03 ng/mL (10-291)
[2018-05-20 13:45] LABS: HBCM Index 0.07 S/CO (0-0.79); HBSAg Index 0.23 S/CO (0-0.99); Hep A IgM AB Non-Reactive (NonReactive); Hep A IgM S/CO 0.11 S/CO (0-0.79); Hep B Surf Ag Non-Reactive S/CO (NonReactive); Hep C IgG Ab Non-Reactive (NonReactive); Hepatitis B Core IGM Abs Non-Reactive (NonReactive)
[2018-05-20 14:50] LABS: ANA Symphony (Qualitative) Negative (Negative); dsDNA IgG Antibody Less than 0.5 IU/mL (<10 Negative)
[2018-05-20 14:51] LABS: EliA Vaculitis New Method **** NEW METHOD ****; Mitochondrial Ab 0.6 U/mL (<4 Negative)
[2018-05-20] MEDS: AMOXicillin 250 MG CAP PO SCH ×2 (15:40→21:38)
--- NOTE | 2018-05-20 17:00 | PDOC.EVN ---
Event Note - Event Note Event Note: POD5 S: pain mild, nausea persists, keeping abx down, good FM O: NAD VS WNL Abd gravid A/P: Persistent LFTs, increasing daily since cholecystectomy, undergoing GI eval , VitB6 and doxalymine added to regimen of scheduled reglan, refusing Zofran today. Change fluids to D5 LR discussed and await GI recs, surgery signed off. Labs pending for AM.
--- NOTE | 2018-05-20 17:14 | PRG ---
DATE OF SERVICE: 05/20/2018 SUBJECTIVE: Ms. Noland has no further abdominal pain. She has had chronic nausea throughout her pre gnancy and this symptom is currently unchanged compared to how has been over the last couple of month s. She has some incisional soreness, but this is improved. She has no itching. No vomiting. PHYSICAL EXAMINATION: VITAL SIGNS: Temperature 97.6, pulse 54, blood pressure 125/68. GENERAL: She is in no acute distress. She is alert and oriented x3. LUNGS: Clear to auscultation bilaterally. HEART: Regular rate and rhythm. ABDOMEN: Soft. She has a gravid uterus. Otherwise, she is nontender. EXTREMITIES: Have no lower extremity edema. LABORATORY DATA DATA: TONIA is negative. Mitochondrial antibody is negative. Bilirubin has been tren ding down to 1.4 today. AST has trended up to 400 and ALT is up to 639, alkaline phosphatase 159, al bumin 3.1. Acute hepatitis screen is negative. IMPRESSION: 1. Abnormal liver function test. She has developed more of a hepatocellular injury pattern with her liver tests. Her liver tests were normal on presentation and her transaminases have been trending u p since surgery. Possibilities would include drug induced liver injury from anesthesia or otherwise. I would doubt a related issue such as acute fatty liver of . Again, her liver t ests were normal on presentation and she has no abdominal pain and overall she is doing well with nor mal mental status. There is no evidence of hepatic vein thrombosis given lack of abdominal pain and no evidence of ascites by CT scan. 2. Cholecystitis status post cholecystectomy. 3. at 30 weeks. RECOMMENDATIONS: 1. Continue to follow the trend of her liver function test. With her transaminases up to the 600 ra nge, I would like to see this peak and start trending down prior to discharge. We will recheck her P T/INR as well as her liver tests and CBC tomorrow morning. 2. Await additional lab work including smooth muscle antibody. 3. Acetaminophen has been discontinued. However, I highly doubt this would be related to her elevat ed liver tests. 4. She has been started on antibiotics and proton pump inhibitor for Helicobacter pylori. 5. She is tolerating a regular diet well.
[2018-05-20] MEDS: Dextrose 5%-Lactated Ringers 1,000 ML IV SCH (17:46)
[2018-05-20] MEDS: Scopolamine 1.5 mg/72 hour Patch TD SCH ×2 (18:25→18:27)
[2018-05-20] MEDS: Clarithromycin 500 MG TAB PO SCH (21:38)
[2018-05-20] MEDS: pyridOXINE 50 MG (B6) TAB PO SCH (21:39)
[2018-05-20] MEDS: Doxylamine 25 MG TAB PO SCH (21:39)
[2018-05-21] MEDS: Metoclopramide HCl 10 MG/2 ML VIAL IVP SCH ×3 (02:02→18:08)
[2018-05-21] MEDS: Dextrose 5%-Lactated Ringers 1,000 ML IV SCH ×3 (02:02→17:18)
[2018-05-21 05:55] LABS: Prothrombin Time 13.6 SEC (12.0-14.7)
[2018-05-21 06:01] LABS: ALT (SGPT) 698 U/L (8-55); ALT (SGPT) 705 U/L (8-55); AST (SGOT) 407 U/L (5-34); AST (SGOT) 414 U/L (5-34); Albumin 2.9 g/dL (3.5-5.0); Alkaline Phosphatase 161 U/L (40-150); Anion Gap 12 mmol/L (10-20); BUN (Urea Nitrogen) Less than 4 mg/dL (7.0-18.7); Bilirubin, Direct 0.7 mg/dL (0.1-0.3); Bilirubin, Total 1.1 mg/dL (0.2-1.2); Bilirubin, Total 1.2 mg/dL (0.2-1.2); Calc. Creatinine Clearance 191 mL/min (70-130); Calcium 8.6 mg/dL (7.8-10.44); Carbon Dioxide 25 mmol/L (22-29); Chloride 102 mmol/L (98-107); Estimated GFR-MDRD Greater than 90; Globulin 3.3 g/dL (2.4-3.5); Glucose 110 mg/dL (70-105); Protein, Total 6.2 g/dL (6.0-8.3); Sodium 136 mmol/L (136-145)
[2018-05-21] MEDS: Famotidine 20 MG TAB PO SCH (06:15)
[2018-05-21 06:16] LABS: Potassium 2.7 mmol/L (3.5-5.1)
[2018-05-21 06:26] LABS: Hemoglobin 10.6 g/dL (12.0-16.0); Mean Corpuscular HGB CONC 34.8 g/dL (32.0-36.0); Mean Corpuscular Hemoglobin 24.7 pg (27.0-31.0); Mean Corpuscular Volume 70.9 fL (78.0-98.0); Mean Platelet Volume 8.9 fL (7.4-10.4); Platelet Count 245 thou/uL (130-400); RBC Distribution Width 14.9 % (11.5-14.5); Red Blood Cell (RBC) Count 4.31 mill/uL (4.20-5.40); White Blood Cell (WBC) Count 10.9 thou/uL (4.8-10.8)
[2018-05-21 06:27] LABS: Band 11 % (5-11); Eosinophils 1 % (0-10); Hypochromia SLIGHT = 6-15 cells (100X) (0-5/hpf); Lymphocytes 5 % (21-51); MDiff Complete? YES; Monocytes 3 % (0-10); Neutrophil 80 % (42-75); PLT Morphology Comment Appears Adequate
[2018-05-21] MEDS ORDERED: pyridOXINE 50 MG (B6) TAB PO SCH (09:00)
[2018-05-21] MEDS: NS 0.9% w/ 40 MEQ KCL 1,000 ML IV SCH ×3 (09:27→23:59)
[2018-05-21] MEDS: Potassium Chloride 20 MEQ TAB PO SCH ×2 (09:27→17:16)
[2018-05-21] MEDS: Clarithromycin 500 MG TAB PO SCH ×2 (09:31→20:44)
[2018-05-21] MEDS: AMOXicillin 250 MG CAP PO SCH ×2 (09:31→20:43)
--- NOTE | 2018-05-21 10:04 | PDOC.EVN ---
Event Note - Event Note Event Note: POD6 S: min pain, nausea improved, tolerated PO last night, ate sandwich, crackers and banana. Had a solid BM, good FM. O: VSWNL nonlabored breathing abd gravid, inc CDI ext: trace edema A/P: POD 6 sp presumed acute hepatic injury-suspected intraoperative medications at this time. LFTs at plateau this AM and pt now tolerating PO and has had AM. Overall she looks much better this AM and is in better spirits. K + being replaced today. Plan to repeat labs in AM and if LFTs trending down and continues to progress well with diet DC home.
--- NOTE | 2018-05-21 16:14 | PDOC.EVN ---
Event Note - Event Note Event Note: NST EVAL: At 16:00, NST evaluated for this patient who is now at approximately 30 weeks s/p open nichole. NST reviewed and greater than 10 by 10 accelerations on strip over 20 minutes, appropriate for gestational age. Dx = reactive non- stress test at 30 weeks
--- NOTE | 2018-05-21 19:16 | PRG ---
DATE OF SERVICE: 05/21/2018 SUBJECTIVE: Ms. Noland has no abdominal pain. She has mild chronic nausea, which is similar to her baseline throughout . This does come and go and she is tolerating solid food. She has no pr uritus or fever. PHYSICAL EXAMINATION: VITAL SIGNS: Temperature 98.3, pulse 81, blood pressure 107/61. GENERAL: She is in no acute distress, alert and oriented x3. HEENT: Eyes have no scleral icterus. LUNGS: Clear to auscultation bilaterally. HEART: Regular rate and rhythm. ABDOMEN: She has a gravid uterus. She is nontender otherwise. EXTREMITIES: No lower extremity edema. LABORATORY DATA: White blood cell count 10.9, hemoglobin 10.6, platelets 245. INR 1.0. Creatinine 0.61, bilirubin 1.1, AST 407, ALT 698, alkaline phosphatase 161. IMPRESSION: 1. Abnormal liver function test. There is no evidence of retained biliary stone by MRCP. Her bilir ubin continues to improve. Her transaminases appear to have stabilized and hopefully have peaked. W shayne will see what the trend is tomorrow. I would favor that this is a drug-induced liver injury follow ing anesthesia, however and no other obvious has been identified. Her smooth muscle antibody is pend ing. She does not have an obvious related liver disease such as fatty liver . He r LFTs were normal when she came in and she does not appear to be progressing with more severe liver disease otherwise. RECOMMENDATIONS: If her liver tests start trending down tomorrow, then she should be ready to discharge home. She cou ld follow up early next week in GI clinic to recheck her liver tests.
[2018-05-21] MEDS: Doxylamine 25 MG TAB PO SCH (20:43)
[2018-05-21] MEDS: pyridOXINE 50 MG (B6) TAB PO SCH (20:44)
--- NOTE | 2018-05-21 20:51 | PRG ---
DATE OF SERVICE: 05/21/2018 The patient is status post open cholecystectomy that was done open due to the patient's 30 weeks' ges tation. She was not a candidate for a laparoscopic cholecystectomy. The patient did well surgically . She did have elevated transaminases. Postoperatively, she underwent an MRCP which did not show an y stones, but did have continuing rise of her transaminases, this is being evaluated by the GI Lacie bella. From our standpoint, the patient's wounds are clean, dry, and intact. She is tolerating a diet a nd her bowel function has returned. She may follow up with us in 2 weeks with no lifting over 20 tarah nds until we evaluate her again. While she remains in the hospital, we will come by to do daily woun d checks and allow the other consultants and the primary team to manage her care.
[2018-05-22] MEDS: Metoclopramide HCl 10 MG/2 ML VIAL IVP SCH ×2 (02:07→09:47)
[2018-05-22 06:15] LABS: ALT (SGPT) 788 U/L (8-55); AST (SGOT) 446 U/L (5-34); Albumin 3.1 g/dL (3.5-5.0); Alkaline Phosphatase 178 U/L (40-150); Anion Gap 12 mmol/L (10-20); BUN (Urea Nitrogen) Less than 4 mg/dL (7.0-18.7); Bilirubin, Total 1.1 mg/dL (0.2-1.2); Calc. Creatinine Clearance 198 mL/min (70-130); Calcium 8.8 mg/dL (7.8-10.44); Carbon Dioxide 23 mmol/L (22-29); Chloride 105 mmol/L (98-107); Estimated GFR-MDRD Greater than 90; Globulin 3.4 g/dL (2.4-3.5); Glucose 88 mg/dL (70-105); Potassium 3.4 mmol/L (3.5-5.1); Protein, Total 6.5 g/dL (6.0-8.3); Sodium 137 mmol/L (136-145)
[2018-05-22] MEDS ORDERED: Potassium Chloride 10 MEQ/100 ML PREMIX BAG IVPB SCH (08:15)
[2018-05-22] MEDS: Clarithromycin 500 MG TAB PO SCH (09:10)
[2018-05-22] MEDS: AMOXicillin 250 MG CAP PO SCH (09:10)
--- NOTE | 2018-05-22 12:08 | PDOC.EVN ---
Event Note - Event Note Event Note: POD7 S: min discomfort, good FM, no CTX or LOF/VB, no itching or swelling, at Vivek' s last night-increasing appetite and tolerating PO O: VS WNL NAD A and O Abd: gravid, inc CDI Ext: no Jose J's, trace edema NST reactive Affect appropriate Laboratory Results - last 24 hr 05/22/18 05/22/18 05:30 05:30 Sodium 137 Potassium 3.4 L Chloride 105 Carbon Dioxide 23 Anion Gap 12 BUN Less than 4 L Creatinine 0.59 L Estimated GFR (MDRD) Greater than 90 Glucose 88 Calcium 8.8 Total Bilirubin 1.1 AST 446 H ALT 788 H Alkaline Phosphatase 178 H Serum Total Protein 6.5 Albumin 3.1 L Globulin 3.4 Albumin/Globulin Ratio 0.9 L Amylase 44.0 Lipase 32 A/P: POD7 sp open nichole @ 31 weeks, now 32 weeks, complicated by suspected acute hepatic injury. No evidence of elevated LFTs to be an obstetric eitiology. UA pending today, BPs WNL, and glucose WNL. Pt is at or above her baseline for N/V of . Appreciate GI recs and insight regarding LFTs. Celestone ordered today, FU 2nd dose tomorrow AM.
[2018-05-22] MEDS: Betamet Acet/Betamet Na Ph 30 MG/5 ML VIAL IM SCH (12:35)
[2018-05-22] MEDS: NS 0.9% w/ 40 MEQ KCL 1,000 ML IV SCH (12:36)
[2018-05-22 14:16] LABS: Bilirubin Negative (Negative); Blood, Urine Negative (Negative); Clarity CLEAR (Clear); Glucose, Urine (Dipstick) Negative (Negative); Leukocyte Trace (Negative); Nitrite Negative (Negative); Protein, Urine (Dipstick) Negative (Neg-Trace); Specific Gravity, Urine 1.004 (1.002-1.036); pH, Urine 7.5 (5.0-9.0)
[2018-05-22 17:18] LABS: Prothrombin Time 13.3 SEC (12.0-14.7)
[2018-05-22 17:37] LABS: CK (CPK) 213 U/L (29-168); Gamma GT (GGT) 129 U/L (9-36)
--- NOTE | 2018-05-22 18:15 | PRG ---
DATE OF SERVICE: 05/22/2018 SUBJECTIVE: Ms. Noland has no acute complaints. She is tolerating a solid diet. She has no vomitin g today. She has had nausea after eating larger amounts. She had a bowel movement yesterday, but no ne today. No pruritus. OBJECTIVE: VITAL SIGNS: Temperature 99.1, pulse 91, and blood pressure 121/75. GENERAL: She is in no acute distress. She is alert and oriented x3. HEENT: Eyes have no scleral icterus. Oropharynx is clear, without lesions. NECK: No cervical or supraclavicular lymphadenopathy and has no asterixis. LUNGS: Clear to auscultation bilaterally. HEART: Regular rate and rhythm. ABDOMEN: She has a gravid uterus. She has no tenderness in the abdomen to palpation. EXTREMITIES: Have no lower extremity edema. LABORATORY DATA: INR yesterday was 1.0, platelets yesterday were 245, white blood cell count 10.9 ye sterday, hemoglobin 10.6 yesterday. Creatinine 0.59 today. Bilirubin 1.1 today. AST 446, ALT 788, alkaline phosphatase 178, albumin 3.1, lipase 32. Iron 54, TIBC 396, ferritin 77. Viral acute hepat itis panel for A, B, and C were negative. TONIA negative, antimitochondrial antibody negative, smooth muscle antibody negative, alpha 1 antitrypsin level is pending. IMPRESSION: Abnormal liver tests with a primarily hepatocellular injury pattern. Liver tests were n ormal on initial presentation and have increased since cholecystectomy. Her bilirubin was 2 the day after cholecystectomy, but has decreased to 1.1 now. Her transaminases were mildly elevated of the d ay after cholecystectomy have gradually increased to the 400 and 788 range since surgery. There is n o abrupt rise. INR remains normal. Overall, I would favor drug induced liver injury; however, I do not see an obvious medications since her triggered this. She was on Tylenol scheduled the first couple days following surgery. This woul d not be expected to cause an acute hepatitis like this. She received general anesthesia. She recei fermín Ancef with as a preoperative antibiotic. Other possibilities include fatty acute fatty liver of . However, her INR remains normal. Her mental status remains normal. In her liver tests w ere normal on initial presentation. She does not have preeclampsia. Her platelets are normal. Noth ing to suggest helps number syndrome, tachybrady syndrome. A vascular cause such as portal vein thr ombosis is a consideration. There is no evidence of hepatic vein thrombosis/but given the lack of ri ght upper quadrant pain or ascites. Bile leak would be a consideration; however, again MRI did not s how fluid collection. Two days after surgery and she has no right upper quadrant pain. She did have some bleeding from the liver bed reported by the OP report and local therapy applied to that. Autoi mmune related process or related process considered. Again, her TONIA, ASMA TONIA SMA are norm al. If she has a significant decline in her liver function then delivery of the baby may be necessar y. She was given steroids today to assist development of a single lung maturity. RECOMMENDATIONS: 1. Check ultrasound with Dopplers of the portal and hepatic veins today. 2. Hepatitis C antibody and hepatitis and CMV and HSV. Labs will be drawn. Check GGT and daily INR . 3. I discussed her case with Dr. Garrett Ferrell in [place] and her liver tests continue to worsen, the n she may ultimately require transfer to [place]. 4. Dr. Matias will cover the weekend. I will discuss her case with Dr. Rader as well.
--- NOTE | 2018-05-22 20:05 | ULT ---
HEPATIC ULTRASOUND WITH DOPPLER EVALUATION: 05/22/18 HISTORY: Patient is 32 weeks . Cholecystectomy one week ago. Elevated LFTs, abdominal pain. Evaluation for portal vein thrombus. Real time imaging of the upper abdomen shows the gallbladder to have been removed. The common duct is 3 to 4 mm. the liver measures 17 cm in length. The pancreas is partially obscured. Portal vein is vi sualized and is patent. DOPPLER EVALUATION WITH SPECTRAL ANALYSIS: Normal flow patterns are shown. Right kidney shows some minimal hydronephrosis which could be related to . IMPRESSION: 1. Minimal right sided hydronephrosis. No evidence of portal vein thrombus. 2. Postop cholecystectomy change. POS: [facility]
[2018-05-23] MEDS: NS 0.9% w/ 40 MEQ KCL 1,000 ML IV SCH ×3 (00:51→17:30)
[2018-05-23 06:19] LABS: Prothrombin Time 13.4 SEC (12.0-14.7)
[2018-05-23 06:28] LABS: ALT (SGPT) 1021 U/L (8-55); AST (SGOT) 600 U/L (5-34); Albumin 3.3 g/dL (3.5-5.0); Alkaline Phosphatase 211 U/L (40-150); Anion Gap 13 mmol/L (10-20); BUN (Urea Nitrogen) 5 mg/dL (7.0-18.7); Calc. Creatinine Clearance 180 mL/min (70-130); Calcium 9.5 mg/dL (7.8-10.44); Carbon Dioxide 22 mmol/L (22-29); Chloride 105 mmol/L (98-107); Estimated GFR-MDRD Greater than 90; Globulin 3.7 g/dL (2.4-3.5); Glucose 128 mg/dL (70-105); Potassium 4.5 mmol/L (3.5-5.1); Sodium 135 mmol/L (136-145)
[2018-05-23 06:40] LABS: Band 3 % (5-11); Hypochromia SLIGHT = 6-15 cells (100X) (0-5/hpf); Lymphocytes 3 % (21-51); MDiff Complete? YES; Mean Corpuscular Hemoglobin 24.3 pg (27.0-31.0); Mean Corpuscular Volume 71.6 fL (78.0-98.0); Mean Platelet Volume 9.1 fL (7.4-10.4); Monocytes 4 % (0-10); Neutrophil 90 % (42-75); PLT Morphology Comment Appears Adequate; Platelet Count 261 thou/uL (130-400); RBC Distribution Width 15.2 % (11.5-14.5); Red Blood Cell (RBC) Count 4.51 mill/uL (4.20-5.40); White Blood Cell (WBC) Count 16.8 thou/uL (4.8-10.8)
[2018-05-23] MEDS: Betamet Acet/Betamet Na Ph 30 MG/5 ML VIAL IM SCH (10:38)
--- NOTE | 2018-05-23 15:22 | PRG ---
DATE OF SERVICE: 05/23/2018 GI FOLLOWUP SUBJECTIVE: Ms. Huang is resting comfortably in bed. She is eating breakfast. She has had some na usea. She denies any pain. Nurses note there have been no events overnight. OBJECTIVE: VITAL SIGNS: Temperature is 97, pulse 73, respirations 18, blood pressure 24-hours is running betwee n 105/59 and 115/66. She reports good movement. CARDIAC: Nurses report heart tones. Regular rate and rhythm. LUNGS: Clear. ABDOMEN: Nontender. She has well-healed scar from open cholecystectomy and right upper quadrant. EXTREMITIES: No clubbing, cyanosis, or edema. She has no asterixis. LABORATORY STUDIES: White count 16.8, hemoglobin 11.0, MCV 71, platelet count 261. INR today is 1.0 , sodium 135, potassium 4.5, bicarbonate 22, chloride 105, BUN 5, creatinine 0.6, glucose 128, AST is up to 600 from 446, ALT is 1021 from 788, alkaline phosphatase is 2011, bilirubin is 1. Protein 7, albumin 3.3. Urine showed no protein on 05/22/2018. Her stools have been noted to be H. pylori posi tive, IgG 1255, IgM 73. TONIA negative, double stranded DNA negative, . Hepatitis A, B, C negati ve. Pending liver test include alpha 1 antitrypsin, CMV antibodies, hepatitis E antibody, hepatitis HSV, PCR. Ultrasound yesterday with Doppler shows no evidence of portal vein or hepatic vein thrombo sis. There was no comment on the report of the hepatic veins not enough confirm this with Radiology this morning. ASSESSMENT AND PLAN: This is a 27-year-old female with 32 weeks with an acute hepatitis of unclear etiology. There is no evidence of biliary stone. She did have a cholecystectomy with stone s removed. She has negative MRCP. She shows no signs of impending liver failure such as encephalopa thy or coagulopathy and she has no features of HELLP. She has received Celestone for lung matu ration with increasing liver function test. I have recommended transfer to a [facility]. She may need delivered early is differential diagnosis would include fatty liver , its pote ntial that she has got some drug-induced autoimmune injury. She does not have any viral symptoms, wh ich she has no autoimmune features. No evidence of Budd-Chiari, talked with Dr. Aaron Sin of OB Service, who is covering for Dr. Rader, primary OB. Dr. Pena talked with Dr. Garrett Ferrell, hepatolo gist at the [facility] in [facility] yesterday, who would agree to see the patient, if the patient is transferred there to the OB Service and Dr. Sin is going to pursue tra nsfer either there or to women center [facility] with [facility] in [place]. This transfer for higher level of care as liver biopsy. Transjugular liver biopsy is not available here if necessary and for possible Maternal Medicine consultation, which is not available here.
--- NOTE | 2018-05-24 00:10 | DIS ---
DATE OF SERVICE: 05/23/2018 DATE OF ADMISSION: 05/14/2018 DATE OF DISCHARGE: 05/23/2018 DISCHARGE DIAGNOSES: Acute liver injury of uncertain etiology at 32 weeks' gestation. HISTORY OF HOSPITAL STAY: Patient was admitted with chronic nausea and vomiting with acute and chron ic cholecystitis, cholelithiasis, and underwent an open cholecystectomy. In the postoperative course , she had persistent symptoms and elevation of her LFTs. Upon discharge, she has an ALT of 1000 and AST of 600 and alkaline phosphatase of 210. Etiologies such as HELLP, severe preeclampsia, fatty julio cesar er in had been ruled out by imaging and laboratory studies. The patient is being transferr ed to the [facility] in [place] for higher level of care for Hepatology care. Dr. Matias has coordinated the transfer with Dr. Ferrell being the liver doctor. She will be discharged via ambulan ce.
[2018-05-24 04:09] VITALS: BP 106/50; TEMP 98
[2018-05-24] MEDS: NS 0.9% w/ 40 MEQ KCL 1,000 ML IV SCH (04:10)
[2018-05-25 13:14] LABS: Alpha-1-Antitrypsin 300 mg/dL (90-200)
[2018-05-25 17:13] LABS: CMV IgM AB Less than 30.0 AU/mL (0.0-29.9); HSV 2 - DNA Negative (Negative)
== END 2018-05-24 08:40 | disposition short-term general hospital (02) | DRG 781 ==
LOC: L&D/OP 19:01 → L&D 05-15 00:03 → OBSVTOIN 05-15 00:03 → 3SE 05-16 11:24
PROVIDERS: ADMIT Obstetrics & Gynecology; ATTEND Obstetrics & Gynecology
PROC: 0FT40ZZ Resection of Gallbladder, Open Approach (ICD-10-PCS; principal; 2018-05-15)
DX: O99.613 Diseases of the digestive system complicating pregnancy, third trimester (principal); K72.00 Acute and subacute hepatic failure without coma; K80.12 Calculus of gallbladder with acute and chronic cholecystitis without obstruction; O26.613 Liver and biliary tract disorders in pregnancy, third trimester; O99.013 Anemia complicating pregnancy, third trimester; D57.3 Sickle-cell trait; Z3A.30 30 weeks gestation of pregnancy
CPT/HCPCS: 36415; 59025; 74181; 76700; 76705; 80053; 80074; 80076; 81003; 82103; 82104; 82150; 82550; 82728; 82977; 83516; 83540; 83550; 83690; 85007; 85025; 85027; 85610; 86038; 86225; 86644; 86645; 86790; 87338; 87529; 88304; 99285; A4216; J0131; J0595; J0702; J1100; J1200; J2001; J2405; J2550; J2704; J2765; J3010; J3411; J3480; J7050; J7120; Q0162; Q9961

== ENCOUNTER 2018-07-09 23:44 | Day surgery (SDC) | payer OTHER ==
[2018-07-10 01:04] LABS: Amnisure Test No Membranes Rupture (No Rupture)
[2018-07-10 01:05] LABS: Amnisure Internal Control QC ACCEPTABLE (ACCEPTABLE)
[2018-07-10 01:09] VITALS: BP 115/70; TEMP 98.1; BMI 35.6
--- NOTE | 2018-07-10 03:16 | PRG ---
DATE OF SERVICE: 07/10/2018 PRIMARY OB: Dr. Tapan Rader. CHIEF COMPLAINT: Leakage of fluid. HISTORY OF PRESENT ILLNESS: The patient is a 27-year-old female with an intrauterine at 38 weeks and 5 days who is presenting to Labor and Delivery with complaining of leakage of fluid x1 week. The patient reports that she has been having to change her underwear about twice a day for dampness. She says she feels like she leaks fluid sometimes that she notices is clear and wanted to make sure she was not having anything going on. The patient was evaluated by her primary physician y and at that time was evaluated and had a negative test for leakage of fluid or for rupture o f membranes. The patient denies fever. She denies abdominal pain. She denies uterine contractions. She denies vaginal bleeding, abdominal tenderness. She denies headache, chest pain, shortness of b reath, nausea, vomiting, diarrhea or constipation. She denies any new rashes. She denies hip proble ms, knee problems, muscle weakness. PAST MEDICAL HISTORY: Sickle cell trait and blues with 2 prior pregnancies. She has also had gallstones in this resulting in a cholecystectomy. She also had medically induced ris e in her LFTs after surgery, which culminated in spontaneous resolution. PAST SURGICAL HISTORY: She has had eye surgery for correction of as a child. She also had an open cholecystectomy during this . CURRENT MEDICATIONS: vitamins. ALLERGIES: No known drug allergies. SOCIAL HISTORY: Denies drug, alcohol or tobacco use, has a desk job at [employer]. Since her cholecyst ectomy, the patient has had no problems with nausea and vomiting. OB LABS: Unavailable at this time. REVIEW OF SYSTEMS: Per HPI. PHYSICAL EXAMINATION: VITAL SIGNS: Blood pressure 119/75, heart rate of 86, respiratory rate of 18, temperature 98.1. GENERAL: She appears to be in no acute distress. She is alert and oriented, cooperative and pleasan t to interact with. HEENT: Normocephalic, atraumatic. LUNGS: Clear to auscultation bilaterally. HEART: Regular rate and rhythm. ABDOMEN: Soft, gravid, nontender to palpation. EXTREMITIES: Nontender, nonedematous. PELVIC: Vulva is without mass lesions or erythema. On speculum exam, there is no pulling. She does have a discharge reminiscent of yeast and cervix that appears to be soft with quite a bit of mucus a t the os. heart tracing performed. Baselines noted to be in the 130s with moderate long-term variability , positive 15 x 15 accelerations. Tocometer showing occasional contractions. AmniSure test is negative. Bedside ultrasound demonstrates several 2 x 2 pockets of fluid. Baby has significant movement and sh owing flexion, extension and gross body movement. A SALES TRAINING COORDINATOR-3 was collected. ASSESSMENT AND PLAN: The patient is a 27-year-old with an intrauterine at 38 weeks and 6 d ays who has had some leakage of fluid, but no evidence of rupture of membranes. She has had several independent evaluations coming with the same conclusion. The patient has been given reassurance. Rafael bella has a SALES TRAINING COORDINATOR-3 pending for later this morning. She has been asked to call back to get results. The darell tielele has been given term labor precautions and instructions to follow up with her primary OB as shilo dulsarahi.
== END 2018-07-10 02:50 | disposition home or self-care (01) ==
LOC: L&D/OP 23:44
PROVIDERS: ATTEND Obstetrics & Gynecology
DX: O42.92 Full-term premature rupture of membranes, unspecified as to length of time between rupture and onset of labor (principal); Z3A.38 38 weeks gestation of pregnancy; Z98.890 Other specified postprocedural states
CPT/HCPCS: 76815; 84112; 87480; 87510; 87660; 99285

== ENCOUNTER 2018-07-21 15:38 | Day surgery (SDC) | payer OTHER ==
[2018-07-21 16:16] VITALS: BP 117/69; TEMP 98.6
[2018-07-21 16:20] VITALS: BMI 36.6
--- NOTE | 2018-07-21 20:34 | PRG ---
DATE OF SERVICE: 07/21/2018 OB ER ENCOUNTER PRIMARY PRUNE WASHER: Dr. Tapan Rader. CHIEF COMPLAINT: Abdominal pains. HISTORY OF PRESENT ILLNESS: The patient is a 27-year-old, G3, P2 female with an intrauterine pregnan cy at 40 weeks and 2 days, who is scheduled for induction of labor tomorrow, who presents today with onset of abdominal pains this morning. She reports there about 5-6 minutes apart this morning, but h as since spaced out to about 10 minutes apart or more. The patient denies leakage of fluid or vagina l bleeding. She denies fever, fall, headache, chest pain. She reports shortness of breath associate d with the , but denies any acute changes. Denies nausea, vomiting, diarrhea, constipation. Denies hip problems, knee problems, muscle weakness. Denies new rashes. Denies vaginal bleeding, leakage of fluid. Denies urinary urgency. PAST MEDICAL HISTORY: History of gallbladder disease, sickle cell trait, blues with her t wo prior pregnancies and medically induced rise in her LFTs this after an open cholecystect sumit with spontaneous resolution. PAST SURGICAL HISTORY: Open cholecystectomy with this , eye surgery as a child. CURRENT MEDICATIONS: vitamins. ALLERGIES: No known drug allergies, although patient appeared to have an extreme rise in her LFTs du e to medication during the hospitalization and surgery at time of her open cholecystectomy. SOCIAL HISTORY: Denies drug, alcohol or tobacco use. OB LABORATORY DATA: Unavailable at time of dictation. REVIEW OF SYSTEMS: Per HPI. PHYSICAL EXAMINATION: VITAL SIGNS: Blood pressure 117/69, heart rate of 89, respiratory rate of 18, satting 99% on room ai r, temperature 98.6. GENERAL: She appears to be in no acute distress. She is alert and oriented, cooperative and pleasan t to interact with. HEAD: Normocephalic, atraumatic. LUNGS: Clear to auscultation bilaterally. HEART: Regular rate and rhythm. ABDOMEN: Soft, gravid, nontender. EXTREMITIES: Nontender, nonedematous. CERVICAL EXAM: Per nursing staff is 2, 50, and ballotable. heart tracing and NST performed for abdominal pain in . Baseline is noted to be in th e 120s with moderate long-term variability, positive accelerations, no decelerations. Tocometer show ing contractions approximately every 10-12 minutes. ASSESSMENT AND PLAN: The patient is a 27-year-old, G3, P2 female with an intrauterine at 4 0 weeks and 2 days, who is having contractions, but no evidence of labor at this time. The patient h as been sent home with term labor precautions. She is scheduled to return tomorrow morning for an in duction of labor. Fetus has a reactive NST and category 1 tracing.
== END 2018-07-21 17:02 | disposition home or self-care (01) ==
LOC: L&D/OP 15:38
PROVIDERS: ATTEND Obstetrics & Gynecology
DX: O47.1 False labor at or after 37 completed weeks of gestation (principal); O99.89 Other specified diseases and conditions complicating pregnancy, childbirth and the puerperium; R10.9 Unspecified abdominal pain; O99.013 Anemia complicating pregnancy, third trimester; D57.3 Sickle-cell trait; Z3A.40 40 weeks gestation of pregnancy; Z79.899 Other long term (current) drug therapy

== ENCOUNTER 2018-07-21 22:42 | Inpatient (IN) | payer OTHER ==
[~2018-07-21 22:42] MED LIST: Bupivacaine/Epinephrine 0.25% 30 ML VIAL ONE
[2018-07-21 23:06] VITALS: BMI 36.6
[2018-07-21] MEDS ORDERED: Lactated Ringer's 1,000 ML IV SCH ×2 (23:15)
[2018-07-21] MEDS ORDERED: NS / Oxytocin 40 units/1000ml 1,000 ML IV PRN (23:15)
[2018-07-21] MEDS ORDERED: Ondansetron HCl/PF 4 MG/2 ML Vial IVP PRN (23:15)
[2018-07-21] MEDS ORDERED: Lidocaine 1% (PF) 30 ML VIAL SC PRN (23:15)
[2018-07-21] MEDS ORDERED: HYDROcodone/Acetaminophen 5/325 mg Tablet PO PRN ×2 (23:15)
[2018-07-21] MEDS ORDERED: Ibuprofen 800 MG TAB PO PRN (23:15)
[2018-07-21 23:34] LABS: Mean Corpuscular HGB CONC 32.4 g/dL (32.0-36.0); Mean Corpuscular Hemoglobin 22.2 pg (27.0-31.0); Mean Corpuscular Volume 68.5 fL (78.0-98.0); Mean Platelet Volume 10.3 fL (7.4-10.4); Platelet Count 324 thou/uL (130-400); RBC Distribution Width 16.7 % (11.5-14.5); Red Blood Cell (RBC) Count 4.96 mill/uL (4.20-5.40)
[2018-07-21] MEDS ORDERED: DISCONTINUE ALL PREVIOUS NARCOTICS FS SCH (23:45)
[2018-07-21] MEDS ORDERED: Bupivacaine 0.5% 20 ML, fentaNYL Citrate/PF 400 MCG in Sodium Chloride 0.9% 72 ML EPIDURAL SCH (23:45)
[2018-07-22 00:15] LABS: HBSAg Index 0.21 S/CO (0-0.99); Hep B Surf Ag Non-Reactive S/CO (NonReactive); Syphilis Antibody Nonreactive (Nonreactive); Syphilis Antibody Index 0.05 S/CO (<1.00 Non-Reactive)
[2018-07-22 00:31] LABS: ALT (SGPT) 8 U/L (8-55); AST (SGOT) 14 U/L (5-34); Albumin 3.6 g/dL (3.5-5.0); Alkaline Phosphatase 131 U/L (40-150); Anion Gap 15 mmol/L (10-20); BUN (Urea Nitrogen) 6 mg/dL (7.0-18.7); Bilirubin, Total 0.5 mg/dL (0.2-1.2); Calc. Creatinine Clearance 161 mL/min (70-130); Calcium 9.2 mg/dL (7.8-10.44); Carbon Dioxide 20 mmol/L (22-29); Chloride 105 mmol/L (98-107); Estimated GFR-MDRD Greater than 90; Globulin 3.4 g/dL (2.4-3.5); Glucose 94 mg/dL (70-105); Sodium 136 mmol/L (136-145)
[2018-07-22] MEDS ORDERED: Acetaminophen 325 MG TAB PO PRN (00:31)
[2018-07-22] MEDS ORDERED: Eucerin (Mineral Oil/Petrolatum,White) 30 gm Jar TOP PRN (00:31)
[2018-07-22] MEDS ORDERED: Ondansetron HCl/PF 4 MG/2 ML Vial IVP PRN ×2 (00:31→03:43)
[2018-07-22] MEDS ORDERED: Lactated Ringer's 500 ML IV PRN (00:31)
[2018-07-22] MEDS ORDERED: ePHEDrine/0.9% NaCl/PF SYRINGE 50 mg/10 ml SLOW IVP PRN (00:31)
[2018-07-22] MEDS ORDERED: diphenhydrAMINE 50 MG/ML VIAL IVP PRN (00:31)
[2018-07-22] MEDS ORDERED: Naloxone HCl 0.4 mg/ml Vial IVP PRN ×2 (00:31)
[2018-07-22] MEDS ORDERED: Promethazine HCl 25 MG/ML VIAL IM PRN (00:31)
[2018-07-22] MEDS ORDERED: fentaNYL Citrate/PF 400 MCG, Bupivacaine 0.5% 20 ML in Sodium Chloride 0.9% 72 ML EPIDURAL SCH (00:45)
[2018-07-22] MEDS ORDERED: Communication Order-Pharmacy FS SCH (00:45)
[2018-07-22] MEDS ORDERED: NS / Oxytocin 40 units/1000ml 1,000 ML IV SCH (03:43)
[2018-07-22] MEDS ORDERED: Milk Of Magnesia 30 ML UDCUP PO PRN (03:43)
[2018-07-22] MEDS ORDERED: Bisacodyl 10 MG SUPP PR PRN (03:43)
[2018-07-22] MEDS ORDERED: Adacel (T-DAP) 0.5 ML VIAL IM ONE (03:43)
[2018-07-22] MEDS: Lanolin Ointment 7 GM TUBE TOP PRN (04:33)
[2018-07-22] MEDS: Ibuprofen 800 MG TAB PO SCH ×3 (06:23→21:39)
[2018-07-22] MEDS ORDERED: HYDROcodone/Acetaminophen 5/325 mg Tablet PO PRN (08:17)
[2018-07-22] MEDS: HYDROcodone/Acetaminophen 5/325 mg Tablet PO PRN ×2 (08:37→18:23)
[2018-07-22] MEDS: Prenatal Vitamin 1 TAB PO SCH (08:38)
[2018-07-22] MEDS: Docusate Calcium (SURFAK) 240 MG CAP PO SCH ×2 (08:39→21:39)
--- NOTE | 2018-07-22 09:14 | PDOC.PP ---
Post Progress Note Post Day #: 0 Subjective: doing well, no concerns other than some moderate cramping and itching PO intake tolerated: yes Flatus: yes Ambulation: yes Vital Signs (12 hours) Temp Pulse Resp BP 07/22/18 03:43 97.7 F 07/21/18 23:16 98.7 F 07/21/18 23:15 98.7 F 07/21/18 23:01 98.7 F 78 18 121/75 Weight Weight 194 lb - Physical Examination General: NAD Respiratory: non-labored breathing Skin: no rash Neurological: no gross focal deficits Psychiatric: normal affect Result Diagrams: 07/21/18 23:25 07/21/18 23:25 Additional Labs: Post Labs Blood Type O POSITIVE 07/21/18 23:25 Hep Bs Antigen Non-Reactive S/CO (NonReactive) 07/21/18 23:25 (1) Vaginal delivery Code(s): O80 - ENCOUNTER FOR FULL-TERM UNCOMPLICATED DELIVERY Status: Acute - Assessment/Plan A/P: PPD 0, doing well, plan to transfer to PP room once available.
--- NOTE | 2018-07-22 09:30 | DN ---
DATE OF DELIVERY: 07/22/2018 The patient delivered a male infant at 40 weeks and 3 days gestation on 07/22/2018 by an uncomplicate d term spontaneous vaginal delivery. PROCEDURE: Delivery time is 0124 hours. Apgars were 9 and 9 and weight was [address] nta delivered spontaneously followed by Pitocin infusion. There were no lacerations. Quantitative blood loss was [address] Morgan was the delivering physician. Counts were correct. Mother and baby are stable in the immediate in the room.
[2018-07-22] MEDS: Ferrous Sulfate 325 MG TAB PO SCH ×2 (16:24→16:25)
[2018-07-23] MEDS: HYDROcodone/Acetaminophen 5/325 mg Tablet PO PRN ×3 (02:13→18:34)
[2018-07-23] MEDS: Ibuprofen 800 MG TAB PO SCH ×3 (06:00→21:06)
[2018-07-23 06:39] LABS: Hemoglobin 11.1 g/dL (12.0-16.0); Mean Corpuscular HGB CONC 31.8 g/dL (32.0-36.0); Mean Corpuscular Volume 69.3 fL (78.0-98.0); Mean Platelet Volume 10.4 fL (7.4-10.4); Platelet Count 291 thou/uL (130-400); RBC Distribution Width 16.8 % (11.5-14.5); Red Blood Cell (RBC) Count 5.02 mill/uL (4.20-5.40); White Blood Cell (WBC) Count 11.5 thou/uL (4.8-10.8)
--- NOTE | 2018-07-23 08:00 | PDOC.PP ---
Post Progress Note Post Day #: 2 Subjective: feeling well, not sure if she wants to go home today. PO intake tolerated: yes Flatus: yes Ambulation: yes Vital Signs (12 hours) Temp Pulse Resp BP Pulse Ox 07/22/18 20:03 97.9 F 74 18 109/66 97 Weight Weight 194 lb - Physical Examination General: NAD Respiratory: non-labored breathing Abdominal: no distention, appropriately TTP Fundus firm & at: umb-1 Extremities: negative homans (B) Neurological: no gross focal deficits Psychiatric: normal affect Result Diagrams: 07/23/18 06:06 07/21/18 23:25 Additional Labs: Post Labs Blood Type O POSITIVE 07/21/18 23:25 Hep Bs Antigen Non-Reactive S/CO (NonReactive) 07/21/18 23:25 - Assessment/Plan PPD1 s/p TSVD VSSAF Doing well, lochia appropriate Rh pos RImm Cont PP care, poss home later today or tomorrow.
[2018-07-23] MEDS: Docusate Calcium (SURFAK) 240 MG CAP PO SCH ×2 (09:01→21:06)
[2018-07-23] MEDS: Prenatal Vitamin 1 TAB PO SCH (09:01)
[2018-07-23] MEDS: Ferrous Sulfate 325 MG TAB PO SCH ×2 (09:02→16:13)
[2018-07-24] MEDS: Ibuprofen 800 MG TAB PO SCH ×2 (06:42→14:02)
--- NOTE | 2018-07-24 08:20 | PDOC.PP ---
Post Progress Note Post Day #: 2 Subjective: No concerns, no NV, min lochia. PO intake tolerated: yes Flatus: yes Ambulation: yes Vital Signs (12 hours) Temp Pulse Resp BP Pulse Ox 07/23/18 20:22 97.5 F L 75 18 119/72 97 Weight Weight 194 lb - Physical Examination General: NAD Respiratory: non-labored breathing Abdominal: no distention Fundus firm & at: below umb Skin: no rash Psychiatric: A&Ox3, normal affect Result Diagrams: 07/23/18 06:06 07/21/18 23:25 Additional Labs: Post Labs Blood Type O POSITIVE 07/21/18 23:25 Hep Bs Antigen Non-Reactive S/CO (NonReactive) 07/21/18 23:25 (1) Vaginal delivery Code(s): O80 - ENCOUNTER FOR FULL-TERM UNCOMPLICATED DELIVERY Status: Acute - Assessment/Plan PPD2 doing well, check CMP prior to leaving today w hx of drug induced transaminitis earlier in preg.
[2018-07-24] MEDS: Docusate Calcium (SURFAK) 240 MG CAP PO SCH (09:11)
[2018-07-24] MEDS: Prenatal Vitamin 1 TAB PO SCH (09:11)
[2018-07-24] MEDS: Ferrous Sulfate 325 MG TAB PO SCH (09:11)
[2018-07-24 09:13] LABS: ALT (SGPT) 11 U/L (8-55); AST (SGOT) 16 U/L (5-34); Albumin 2.9 g/dL (3.5-5.0); Alkaline Phosphatase 102 U/L (40-150); Anion Gap 12 mmol/L (10-20); BUN (Urea Nitrogen) 7 mg/dL (7.0-18.7); Bilirubin, Total 0.3 mg/dL (0.2-1.2); Calc. Creatinine Clearance 170 mL/min (70-130); Calcium 8.6 mg/dL (7.8-10.44); Carbon Dioxide 22 mmol/L (22-29); Chloride 106 mmol/L (98-107); Estimated GFR-MDRD Greater than 90; Globulin 3.3 g/dL (2.4-3.5); Glucose 76 mg/dL (70-105); Potassium 3.7 mmol/L (3.5-5.1); Protein, Total 6.2 g/dL (6.0-8.3); Sodium 136 mmol/L (136-145)
[2018-07-24] MEDS: Lanolin Ointment 7 GM TUBE TOP PRN (09:14)
[2018-07-24] MEDS: HYDROcodone/Acetaminophen 5/325 mg Tablet PO PRN (10:12)
[2018-07-24 12:12] VITALS: BP 108/58; TEMP 97.9
== END 2018-07-24 15:35 | disposition home or self-care (01) | DRG 775 ==
LOC: L&D 22:42 → 3SW 07-22 15:55
PROVIDERS: ADMIT Obstetrics & Gynecology; ATTEND Obstetrics & Gynecology
PROC: 10E0XZZ Delivery of Products of Conception, External Approach (ICD-10-PCS; principal; 2018-07-22)
PROC: 3E033VJ Introduction of Other Hormone into Peripheral Vein, Percutaneous Approach (ICD-10-PCS; 2018-07-22)
DX: O99.62 Diseases of the digestive system complicating childbirth (principal); Z37.0 Single live birth; K80.20 Calculus of gallbladder without cholecystitis without obstruction; Z3A.40 40 weeks gestation of pregnancy; Z67.90 Unspecified blood type, Rh positive
CPT/HCPCS: 36415; 51702; 80053; 85027; 86780; 86850; 86900; 86901; 87340; 99282; J3010; J3490; J7050

== ENCOUNTER 2020-03-10 13:58 | Outpatient (CLI) | payer OTHER ==
--- NOTE | 2020-03-10 16:18 | MRI ---
MRI RIGHT WRIST WITHOUT CONTRAST: 03/10/20 HISTORY: Carpal tunnel syndrome. COMPARISON: None. FINDINGS: There is extension motion throughout the examination limiting evaluation. BONES: No fracture. No malalignment. No osseous contusion. Triangular fibrocartilage: Intact. Tendons: No significant tenosynovitis. Normal location of the extensor carpi ulnaris. Subsheath is i ntact. The hook of the hamate and tubercle of trapezium appear to be intact. Soft tissues: The median nerve does not appear to be enlarged or edematous. The flexor retinaculum is without significant scar. No ganglion pseudocyst within the flexor tendon sheath. The intrinsic ligaments are intact. Extrinsic ligaments appear to be intact. IMPRESSION: Aside from the extensive motion, relative unremarkable right wrist MRI. No significant mass within th e carpal tunnel nor loss of carpal tunnel fat pad. Median nerve appears normal. POS: HOME
== END 2020-03-10 13:59 | disposition home or self-care (01) ==
LOC: BICMRI 13:58
PROVIDERS: ATTEND Orthopaedic Surgery Hand Surgery
DX: G56.03 Carpal tunnel syndrome, bilateral upper limbs (principal)